=== PATIENT | female | born 1960 | race American Indian/Alaskan Native ===

== ENCOUNTER 2017-01-23 11:20 | Emergency (ER) | payer MEDICARE ==
[2017-01-23] MEDS ORDERED: MORPHINE IM ONE (14:10)
[2017-01-23] MEDS ORDERED: ZOFRAN ODT PO ONE (14:10)
--- NOTE | 2017-01-23 14:16 | Emergency Department Report ---
ED General Adult HPI - General Chief complaint: Fall Stated complaint: KNEE/WRIST PAIN Time Seen by Provider: 01/23/17 14:04 Source: patient Mode of arrival: Ambulatory Limitations: No Limitations - History of Present Illness Initial comments: PT states her R knee has been hurting her for a day. PT states that today she was walking down steps and her knee gave out due to pain. PT states she fell down 4 steps. PT c/o pain to low back, L wrist, and R knee. PT states she has had two knee surgeries on each knee and states she was just in another ED for her left knee giving out. PT denies hx of htn MD Complaint: R knee pain Location: back, upper extremity, lower extremity Severity scale (0 -10): 10 Quality: sharp Consistency: constant Improves with: medication (pt states she took a half tablet of her percocet) Treatments Prior to Arrival: NSAID (mobic), other (amblating with cane, taking 1 /2 tab percocet) - Related Data Home Medications Medication Instructions Recorded Confirmed Last Taken Glimepiride [Amaryl] 4 mg PO BID 03/18/14 01/01/16 12/30/15 Gabapentin [Neurontin] 800 mg PO BID 01/01/16 01/01/16 01/01/16 Meloxicam 15 mg PO QDAY 01/01/16 01/01/16 12/30/15 Previous Rx's Medication Instructions Recorded Last Taken Type Oxycodone HCl/Acetaminophen 1 each PO Q6HR PRN #20 tablet 03/18/14 01/01/16 Rx [Percocet 10/325 mg] methOCARBAMOL [Robaxin TAB] 500 mg PO Q6H PRN #15 tablet 01/23/17 Unknown Rx Allergies Allergy/AdvReac Type Severity Reaction Status Date / Time No Known Allergies Allergy Verified 03/18/14 12:22 ED Review of Systems ROS: Stated complaint: KNEE/WRIST PAIN Other details as noted in HPI Comment: All other systems reviewed and negative Cardiovascular: denies: chest pain Gastrointestinal: denies: abdominal pain, nausea, vomiting Musculoskeletal: back pain, joint swelling, arthralgia Skin: other (pt denies wounds from fall ) Neurological: abnormal gait (due to knee pain ) ED Past Medical Hx - Past Medical History Previous Medical History?: Yes Hx Congestive Heart Failure: No Hx Diabetes: Yes Hx Asthma: No Hx COPD: No Additional medical history: Sciatic nerve pain, Herniated disc in back. Left hip atrophy - Surgical History Past Surgical History?: Yes Hx Cholecystectomy: Yes Additional Surgical History: knee surgery, hysterectomy. mastoid surgery - Social History Smoking Status: Never Smoker Substance Use Type: Alcohol, Non Opiate Pain, Prescribed - Medications Home Medications: Home Medications Medication Instructions Recorded Confirmed Last Taken Type Glimepiride [Amaryl] 4 mg PO BID 03/18/14 01/01/16 12/30/15 History Oxycodone HCl/Acetaminophen 1 each PO Q6HR PRN #20 tablet 03/18/14 01/01/1606/09 Rx [Percocet 10/325 mg] Gabapentin [Neurontin] 800 mg PO BID 01/01/16 01/01/16 01/01/16 History Meloxicam 15 mg PO QDAY 01/01/16 01/01/16 12/30/15 History methOCARBAMOL [Robaxin TAB] 500 mg PO Q6H PRN #15 tablet 01/23/17 Unknown Rx ED Physical Exam - General Limitations: No Limitations General appearance: alert, in no apparent distress, obese - Head Head exam: Present: atraumatic, normocephalic - Eye Eye exam: Present: normal appearance - ENT ENT exam: Present: normal exam - Neck Neck exam: Present: normal inspection, full ROM, other (no post midline c-spine tenderness ) - Respiratory Respiratory exam: Present: normal lung sounds bilaterally, respiratory distress. Absent: chest wall tenderness - Cardiovascular Cardiovascular Exam: Present: regular rate, normal rhythm, normal heart sounds - GI/Abdominal GI/Abdominal exam: Present: soft. Absent: tenderness - Rectal Rectal exam: Present: deferred - Extremities Exam Extremities exam: Present: normal inspection, tenderness, normal capillary refill. Absent: calf tenderness - Expanded Upper Extremity Exam Left Upper Arm exam: Present: normal inspection, full ROM Elbow exam: Present: normal inspection, full ROM Forearm Wrist exam: Present: normal inspection, tenderness (to the radial aspect of the L wrist ) Vascular: Present: normal capillary refill. Absent: vascular compromise, pulse deficit radial art - Expanded Lower Extremity Exam Right Upper Leg exam: Present: normal inspection Knee exam: Present: tenderness (exam limited due to pt's body habitus, difficult to appreciate landmarks. ), full knee extension Lower Leg exam: Absent: erythema, Martin's sign Neuro vascular tendon exam: Present: no vascular compromise - Back Exam Back exam: Present: normal inspection, tenderness, vertebral tenderness (L spine ). Absent: CVA tenderness (R), CVA tenderness (L) - Neurological Exam Neurological exam: Present: alert, oriented X3 - Psychiatric Psychiatric exam: Present: normal affect, normal mood - Skin Skin exam: Present: warm, dry, intact, normal color ED Course Vital Signs 01/23/17 01/23/17 11:30 14:18 Temperature 98.5 F Pulse Rate 89 Respiratory 20 18 Rate Blood Pressure 157/82 O2 Sat by Pulse 95 Oximetry - Reevaluation(s) Reevaluation #1: 01/23/17 14:12 PT aware of plan of care. Reevaluation #2: 01/23/17 15:20 PT states she is feeling better. PT has family at bedside. PT ward no fx seen on exam. PT aware of plan of care. Reevaluation #3: 01/23/17 15:46 pt in L velcro wrist splint. pt nvi - Pulse Oximetry Interpretation Digit-Finger Initial Pulse Oximetry Readin ED Medical Decision Making - Radiology Data Radiology results: report reviewed R knee- no fx, degenerative changes L spine- no fx L wrist - nap - Differential Diagnosis fall, fracture, contusion Critical care attestation.: If time is entered above; I have spent that time in minutes in the direct care of this critically ill patient, excluding procedure time. ED Disposition Clinical Impression: Fall down steps Qualifiers: Encounter type: initial encounter Qualified Code(s): W10.8XXA - Fall (on) (from ) other stairs and steps, initial encounter Right knee pain Qualifiers: Chronicity: acute Qualified Code(s): M25.561 - Pain in right knee Left wrist injury Qualifiers: Encounter type: initial encounter Qualified Code(s): S69.92XA - Unspecified injury of left wrist, hand and finger(s), initial encounter Acute low back pain Qualifiers: Back pain laterality: midline Sciatica presence: without sciatica Qualified Code(s): M54.5 - Low back pain Disposition: DISCHARGED TO HOME OR SELFCARE Is pt being admited?: No Does the pt Need Aspirin: No Condition: Stable Instructions: Wrist Injury (ED), Knee Pain (ED), Fall Prevention (ED) Additional Instructions: No driving or ETOH after Robaxin Prescriptions: methOCARBAMOL [Robaxin TAB] 500 mg PO Q6H PRN #15 tablet PRN Reason: Muscle Spasm Referrals: PRIMARY CARE, [Primary Care Provider] - 3-5 Days Time of Disposition: 15:24
--- NOTE | 2017-01-23 15:13 | XRay Report ---
LEFT WRIST, 2 views: HISTORY: Pain after fall. Routine views demonstrate the carpal bones to be well mineralized with well preserved bony mineralization and interosseous joint spaces. The carpal and adjacent articular bones have normal contours. The surrounding soft tissues are unremarkable. IMPRESSION: Unremarkable exam.
--- NOTE | 2017-01-23 15:14 | XRay Report ---
LUMBOSACRAL SPINE, 3 VIEWS: History: Back pain Findings: The vertebral bodies, disk spaces and posterior elements are intact. No compression deformity or malalignment. Mild degenerative changes are noted. The SI joints are symmetric and unremarkable. Impression: 1. No evidence for acute injury to the lumbar spine.
--- NOTE | 2017-01-23 15:14 | XRay Report ---
RIGHT KNEE, 3 views: History: Pain after fall. Moderate osteoarthritic changes are identified. No evidence for fracture, osteochondral defect or bone lesion. No significant soft tissue abnormality is seen. IMPRESSION: Degenerative changes. No acute bony injury.
[2017-01-23 15:49] VITALS: BP 152/84
== END 2017-01-23 15:48 | disposition home or self-care (01) ==
LOC: ED 11:20
DX: S69.92XA Unspecified injury of left wrist, hand and finger(s), initial encounter (principal); M25.561 Pain in right knee; M54.5 Low back pain; E11.9 Type 2 diabetes mellitus without complications; Z90.49 Acquired absence of other specified parts of digestive tract; Z90.710 Acquired absence of both cervix and uterus; Z98.890 Other specified postprocedural states; W10.8XXA Fall (on) (from) other stairs and steps, initial encounter; Y93.01 Activity, walking, marching and hiking; Y99.8 Other external cause status; Y92.89 Other specified places as the place of occurrence of the external cause
CPT/HCPCS: 29125; 72100; 73100; 73562; 96372; 99284; J2270; Q0162

== ENCOUNTER 2017-11-09 13:35 | Emergency (ER) | payer MEDICARE ==
[2017-11-09 14:25] LABS: Basophils % (Auto) 0.2 % (0.0-1.8); Eosinophils % (Auto) 0.1 % (0.0-4.3); Hematocrit 41.9 % (30.3-42.9); Hemoglobin 13.7 gm/dl (10.1-14.3); Mean Corpuscular HGB Conc 33 % (30-34); Mean Corpuscular Hemoglobin 28 pg (28-32); Mean Corpuscular Volume 86 fl (79-97); Platelet Count 264 K/mm3 (140-440); Red Blood Count 4.85 M/mm3 (3.65-5.03); Red Cell Distribution Width 13.6 % (13.2-15.2); White Blood Count 11.6 K/mm3 (4.5-11.0)
[2017-11-09 14:40] LABS: Anion Gap 27 mmol/L; BUN/Creatinine Ratio 29; Blood Urea Nitrogen 26 mg/dL (7-17); Calcium 9.5 mg/dL (8.4-10.2); Carbon Dioxide 22 mmol/L (22-30); Glucose 358 mg/dL (65-100); Potassium 4.4 mmol/L (3.6-5.0); Sodium 139 mmol/L (137-145)
[2017-11-09] MEDS ORDERED: NACL 0.9% 1000 ML 1,000 ML IV ONE (14:46)
[2017-11-09] MEDS ORDERED: NORCO 5/325 PO ONE (14:56)
[2017-11-09] MEDS ORDERED: TORADOL IV ONE (14:56)
--- NOTE | 2017-11-09 15:40 | Emergency Department Report ---
- General Chief Complaint: Chest Pain Stated Complaint: SORE THROAT Time Seen by Provider: 11/09/17 14:38 Source: patient, old records reviewed (negative stress test 01/12/2016 EF of 68% ) Mode of arrival: Ambulatory Limitations: No Limitations - History of Present Illness Initial Comments: 57-year-old female with a past medical history diabetes, previous cholecystectomy, hysterectomy, and herniated discs presents to the hospital with complaints of sore throat, fever, chills, cough for 3 days. Cough is primarily nonproductive. Patient states that most of the pain is in her throat. Patient denies nausea, vomiting, but today started to have loose black stools. Positive chest pain secondary to congestion. Denies shortness of breath, abdominal pain, or dysuria. Patient did not receive a flu shot this year. Patient states she hasn't taken her medication in several days secondary to pain with swallowing. She also states she is in pain management and takes Percocet. Decreased PO intake reported. PMD: Dr. Green - Related Data Home Medications Medication Instructions Recorded Confirmed Last Taken Glimepiride [Amaryl] 4 mg PO BID 03/18/14 01/01/16 12/30/15 Gabapentin [Neurontin] 800 mg PO BID 01/01/16 01/01/16 01/01/16 Meloxicam 15 mg PO QDAY 01/01/16 01/01/16 12/30/15 Previous Rx's Medication Instructions Recorded Last Taken Type Oxycodone HCl/Acetaminophen 1 each PO Q6HR PRN #20 tablet 03/18/14 01/01/16 Rx [Percocet 10/325 mg] methOCARBAMOL [Robaxin TAB] 500 mg PO Q6H PRN #15 tablet 01/23/17 Unknown Rx Azithromycin [Zithromax Z-KATHIE] 1 dose PO DAILY 5 Days tab 11/09/17 Unknown Rx Benzonatate [Tessalon Perles] 100 mg PO Q8HR #30 capsule 11/09/17 Unknown Rx Ondansetron [Zofran Odt] 4 mg PO Q8HR #20 tab.rapdis 11/09/17 Unknown Rx Allergies Allergy/AdvReac Type Severity Reaction Status Date / Time No Known Allergies Allergy Verified 11/09/17 13:40 ED Review of Systems ROS: Stated complaint: SORE THROAT Other details as noted in HPI Comment: All other systems reviewed and negative Other: Constitutional: as per hpi Eyes: No eye pain visual changes ENT: as per hpi Neck: Denies pain Respiratory: as per hpi Cardiovascular: Denies palpitations, syncope GI: Denies abdominal pain : Denies dysuria Musculoskeletal: Denies back pain, joint swelling Skin: Denies rash, lesions, erythema Neurologic: Denies headache, numbness, weakness Psychiatric: Denies suicidal ideation, hallucinations ED Past Medical Hx - Past Medical History Hx Congestive Heart Failure: No Hx Diabetes: Yes Hx Asthma: No Hx COPD: No Additional medical history: Sciatic nerve pain, Herniated disc in back. Left hip atrophy - Surgical History Hx Cholecystectomy: Yes Additional Surgical History: knee surgery, hysterectomy. mastoid surgery - Social History Smoking Status: Never Smoker Substance Use Type: None - Medications Home Medications: Home Medications Medication Instructions Recorded Confirmed Last Taken Type Glimepiride [Amaryl] 4 mg PO BID 03/18/14 01/01/16 12/30/15 History Oxycodone HCl/Acetaminophen 1 each PO Q6HR PRN #20 tablet 03/18/14 01/01/1606/09 Rx [Percocet 10/325 mg] Gabapentin [Neurontin] 800 mg PO BID 01/01/16 01/01/16 01/01/16 History Meloxicam 15 mg PO QDAY 01/01/16 01/01/16 12/30/15 History methOCARBAMOL [Robaxin TAB] 500 mg PO Q6H PRN #15 tablet 01/23/17 Unknown Rx Azithromycin [Zithromax Z-KATHIE] 1 dose PO DAILY 5 Days tab 11/09/17 Unknown Rx Benzonatate [Tessalon Perles] 100 mg PO Q8HR #30 capsule 11/09/17 Unknown Rx Ondansetron [Zofran Odt] 4 mg PO Q8HR #20 tab.rapdis 11/09/17 Unknown Rx ED Physical Exam - General Limitations: No Limitations - Other Other exam information: General: No limitations, patient is alert in no acute distress Head exam: Atraumatic, normocephalic Eyes exam: Normal appearance, pupils equal reactive to light, extraocular movements intact ENT: Moist mucous membrane, normal oropharynx, no exudate Neck exam: Normal inspection, full range of motion, no meningismus nontender Respiratory exam: Clear to auscultation bilateral, no wheezes, rales, crackles Cardiovascular: Normal rate and rhythm, tachycardic regular rhythm Abdomen: Soft, nondistended, and nontender, with normal bowel sounds, no rebound, or guarding Rectal: Erythema to anal area with external hemorrhoid. Brown stool without gross blood. Guaiac positive Extremity: Full range of motion normal inspection no deformity, no calf tenderness or edema Back: Normal Inspection, full range of motion, no tenderness Neurologic: Alert, oriented x3, cranial nerves intact, no motor or sensory deficit Psychiatric: normal affect, normal mood Skin: Warm, dry, intact ED Course Vital Signs 11/09/17 11/09/17 11/09/17 13:40 14:08 14:15 Temperature 98.3 F Pulse Rate 123 H 109 H Respiratory 18 35 H Rate Blood Pressure 124/75 168/89 O2 Sat by Pulse 98 98 99 Oximetry 11/09/17 11/09/17 11/09/17 14:30 14:45 15:03 Temperature Pulse Rate 108 H 108 H 115 H Respiratory 13 14 24 Rate Blood Pressure 149/83 136/87 136/87 O2 Sat by Pulse 94 95 93 Oximetry 11/09/17 11/09/17 11/09/17 15:15 15:30 15:45 Temperature Pulse Rate 114 H 113 H 115 H Respiratory 14 19 19 Rate Blood Pressure 180/104 158/82 164/90 O2 Sat by Pulse 97 98 98 Oximetry 11/09/17 11/09/17 11/09/17 16:00 16:15 16:30 Temperature Pulse Rate 108 H 108 H 104 H Respiratory 19 23 20 Rate Blood Pressure 158/86 158/86 155/81 O2 Sat by Pulse 96 96 95 Oximetry 11/09/17 11/09/17 11/09/17 16:45 17:00 17:15 Temperature Pulse Rate 101 H 102 H 99 H Respiratory 15 18 17 Rate Blood Pressure 163/95 162/80 160/81 O2 Sat by Pulse 95 94 93 Oximetry - Reevaluation(s) Reevaluation #1: 11/09/17 15:40 Patient treated with NS, Toradol, [place] ED Medical Decision Making - Lab Data Result diagrams: 11/09/17 14:02 11/09/17 14:02 Lab Results 11/09/17 11/09/17 Range/Units 14:02 14:02 WBC 11.6 H (4.5-11.0) K/mm3 RBC 4.85 (3.65-5.03) M/mm3 Hgb 13.7 (10.1-14.3) gm/dl Hct 41.9 (30.3-42.9) % MCV 86 (79-97) fl MCH 28 (28-32) pg MCHC 33 (30-34) % RDW 13.6 (13.2-15.2) % Plt Count 264 (140-440) K/mm3 Lymph % (Auto) 15.5 (13.4-35.0) % [place] % (Auto) 10.2 H (0.0-7.3) % Eos % (Auto) 0.1 (0.0-4.3) % Baso % (Auto) 0.2 (0.0-1.8) % Lymph # 1.8 (1.2-5.4) K/mm3 [place] # 1.2 H (0.0-0.8) K/mm3 Eos # 0.0 (0.0-0.4) K/mm3 Baso # 0.0 (0.0-0.1) K/mm3 Seg Neutrophils % 74.0 H (40.0-70.0) % Seg Neutrophils # 8.6 H (1.8-7.7) K/mm3 Sodium 139 (137-145) mmol/L Potassium 4.4 (3.6-5.0) mmol/L Chloride 94.0 L (98-107) mmol/L Carbon Dioxide 22 (22-30) mmol/L Anion Gap 27 mmol/L BUN 26 H (7-17) mg/dL Creatinine 0.9 (0.7-1.2) mg/dL Estimated GFR > 60 ml/min BUN/Creatinine Ratio 29 % Glucose 358 H (65-100) mg/dL Calcium 9.5 (8.4-10.2) mg/dL Troponin T < 0.010 (0.00-0.029) ng/mL Flu negative Strep negative - EKG Data -: EKG Interpreted by [facility] EKG shows normal: sinus rhythm, axis (47), QRS complexes (91), ST-T waves (no stemi/t inv) Rate: tachycardia (110) - EKG Data When compared to previous EKG there are: no significant change (12/19/15) - Radiology Data Radiology results: report reviewed (chest x-ray reported by radiologist: Normal) - Medical Decision Making Patient will be treated empirically with a Z-Kathie. Nausea cough medicine will be provided to take as needed. Up is to follow-up will be encouraged. Tachycardia likely secondary to dehydration and decreased by mouth. Improved with IV fluids - Differential Diagnosis viral syndrome, bronchitis, pneumonia, strep pharyngitis Critical Care Time: No Critical care attestation.: If time is entered above; I have spent that time in minutes in the direct care of this critically ill patient, excluding procedure time. ED Disposition Clinical Impression: Viral syndrome, Pharyngitis, Diabetes Disposition: - TO HOME OR SELFCARE Is pt being admited?: No Does the pt Need Aspirin: No Condition: Stable Instructions: Viral Syndrome (ED), Pharyngitis (ED), Diabetes Mellitus Type 2 in Adults (ED) Additional Instructions: Take the medication as prescribed. Return if symptoms worsen. Follow up with his doctor within 2-3 days Prescriptions: Azithromycin [Zithromax Z-KATHIE] 1 dose PO DAILY 5 Days tab Benzonatate [Tessalon Perles] 100 mg PO Q8HR #30 capsule Ondansetron [Zofran Odt] 4 mg PO Q8HR #20 tab.kp Referrals: KELSEY GREEN MD [Staff Physician] - 2-3 Days Time of Disposition: 17:46
--- NOTE | 2017-11-09 15:55 | XRay Report ---
FINAL REPORT PROCEDURE: XR CHEST ROUTINE 2V TECHNIQUE: PA and lateral chest radiographs were obtained. CPT 91223 HISTORY: fever, cough, chills COMPARISON: No prior studies are available for comparison. FINDINGS: Heart: Normal. Mediastinum/Vessels: Normal. Lungs/Pleural space: Normal. Bony thorax: No acute osseous abnormality. Other: IMPRESSION: Normal examination.
[2017-11-09 18:18] VITALS: BP 166/72
== END 2017-11-09 18:00 | disposition home or self-care (01) ==
LOC: ED 13:35
DX: B34.9 Viral infection, unspecified (principal); J02.9 Acute pharyngitis, unspecified; E11.9 Type 2 diabetes mellitus without complications
CPT/HCPCS: 36415; 71020; 80048; 82271; 82962; 84484; 85025; 87116; 87400; 87430; 93005; 93010; 96361; 96374; 96375; 99284; J1885; J7030; J1815

== ENCOUNTER → 2018-02-05 | Outpatient (CLI) | payer MEDICARE | LOC: SLR 11:00 | PROVIDERS: ATTEND Otolaryngology | DX: G47.30 Sleep apnea, unspecified (principal) | CPT/HCPCS: 95810 ==

== ENCOUNTER 2018-03-05 11:00 | Outpatient (CLI) | payer MEDICARE | END 2018-03-05 11:01 | disposition home or self-care (01) | LOC: SLR 11:00 | PROVIDERS: ATTEND Otolaryngology | DX: G47.33 Obstructive sleep apnea (adult) (pediatric) (principal); E66.9 Obesity, unspecified; R40.0 Somnolence | CPT/HCPCS: 95811 ==

== ENCOUNTER 2018-03-26 18:31 | Emergency (ER) | payer MEDICARE ==
[2018-03-26 19:01] VITALS: BP 164/83
--- NOTE | 2018-03-27 02:55 | Emergency Department Report ---
HPI - General Chief Complaint: Pain General Time Seen by Provider: 03/27/18 00:09 ED Past Medical Hx - Past Medical History Hx Congestive Heart Failure: No Hx Diabetes: Yes Hx Asthma: No Hx COPD: No Additional medical history: Sciatic nerve pain, Herniated disc in back. Left hip atrophy - Surgical History Hx Cholecystectomy: Yes Additional Surgical History: knee surgery, hysterectomy. mastoid surgery - Social History Smoking Status: Never Smoker Substance Use Type: None - Medications Home Medications: Home Medications Medication Instructions Recorded Confirmed Last Taken Type Glimepiride [Amaryl] 4 mg PO BID 03/18/14 01/01/16 12/30/15 History Oxycodone HCl/Acetaminophen 1 each PO Q6HR PRN #20 tablet 03/18/14 01/01/1606/09 Rx [Percocet 10/325 mg] Gabapentin [Neurontin] 800 mg PO BID 01/01/16 01/01/16 01/01/16 History Meloxicam 15 mg PO QDAY 01/01/16 01/01/16 12/30/15 History methOCARBAMOL [Robaxin TAB] 500 mg PO Q6H PRN #15 tablet 01/23/17 Unknown Rx Azithromycin [Zithromax Z-KATHIE] 1 dose PO DAILY 5 Days tab 11/09/17 Unknown Rx Benzonatate [Tessalon Perles] 100 mg PO Q8HR #30 capsule 11/09/17 Unknown Rx Ondansetron [Zofran Odt] 4 mg PO Q8HR #20 tab.rapdis 11/09/17 Unknown Rx ED Review of Systems ROS: Stated complaint: LEG PAIN Other details as noted in HPI Constitutional: denies: chills, fever Eyes: denies: eye pain, eye discharge, vision change ENT: denies: ear pain, throat pain Respiratory: denies: cough, shortness of breath, wheezing Cardiovascular: denies: chest pain, palpitations Endocrine: no symptoms reported Gastrointestinal: denies: abdominal pain, nausea, diarrhea Genitourinary: denies: urgency, dysuria, discharge Musculoskeletal: arthralgia, myalgia. denies: back pain, joint swelling Skin: denies: rash, lesions Neurological: denies: headache, weakness, paresthesias Psychiatric: denies: anxiety, depression Hematological/Lymphatic: denies: easy bleeding, easy bruising Physical Exam - Physical Exam Vital Signs: Vital Signs 03/26/18 18:57 Temperature 99.1 F Pulse Rate 93 H Respiratory 16 Rate Blood Pressure 164/83 O2 Sat by Pulse 97 Oximetry Physical Exam: GENERAL: Alert and oriented x3, no apparent distress, Normal Gait, atraumatic. HEAD: Head is normocephalic and a-traumatic. NECK: Supple. Non edematous, No lymphadenopathy or thyromegaly. No C-spine tenderness, full range of motion LUNGS: Symetrical with respiration, No wheezing, no rales or crackles, CTAB. HEART: S1, S2 present, regular rate and rhythm without murmur, no rubs, no gallops. Non tender to palpation BACK: Full range of motion, no spinal tenderness, EXTREMITIES/MUSCULOSKELETAL: No cyanosis, clubbing, rash, lesions or edema. Full ROM bilaterally. UE/LE Pulses 2+ bilaterally. LE and UE 5+ strength bilaterally, tenderness to palpation of the gastrocnemius muscles. Homans sign negative, no swelling or tenderness of the calf NEUROLOGIC: The patient is cooperative with no focal neurologic deficits. SKIN: Warm and dry, No lesions, No ulceration or induration present. ED Course Vital Signs 03/26/18 18:57 Temperature 99.1 F Pulse Rate 93 H Respiratory 16 Rate Blood Pressure 164/83 O2 Sat by Pulse 97 Oximetry Critical care attestation.: If time is entered above; I have spent that time in minutes in the direct care of this critically ill patient, excluding procedure time. ED Disposition Disposition: [id number]-07 LEFT AGAINST MED ADVICE Condition: Stable Referrals: PRIMARY CARE, [Primary Care Provider] - 3-5 Days Forms: AMA Form
== END 2018-03-27 00:43 | disposition left against medical advice (07) ==
LOC: ED 18:31
DX: M79.605 Pain in left leg (principal); E11.9 Type 2 diabetes mellitus without complications; Z90.710 Acquired absence of both cervix and uterus; Z90.49 Acquired absence of other specified parts of digestive tract; Z98.890 Other specified postprocedural states
CPT/HCPCS: 99282

== ENCOUNTER 2018-12-08 15:35 | Emergency (ER) | payer MEDICARE ==
[2018-12-08] MEDS ORDERED: CATAPRES ONE (16:00)
[2018-12-08] MEDS ORDERED: CATAPRES PO ONE (16:01)
--- NOTE | 2018-12-08 18:25 | Emergency Department Report ---
ED Dysuria HPI - HPI Chief Complaint: Abdominal Pain Stated Complaint: LEFT SIDE PAIN Time Seen by Provider: 12/08/18 17:21 Duration: 3 Days Severity: Moderate Symptoms: Dysuria: Yes, Frequency: No, Suprapubic Pain: No, Flank Pain: Yes, Fever: Yes, Hematuria: No, Abdominal Pain: No, Previous UTI's: No Other History: Patient is a 58-year-old -[place] female that comes in tonight complaining of a several WEEK history of left flank pain. She states that over the last several days she has had nausea vomiting fevers and chills. She is afebrile. She is ambulatory and nontoxic on arrival. She is eating chips on my arrival to her room. She was hypertensive in triage and given clonidine for her blood pressure. ED Review of Systems ROS: Stated complaint: LEFT SIDE PAIN Other details as noted in HPI Comment: All other systems reviewed and negative Constitutional: see HPI, chills, fever Eyes: denies: eye pain ENT: denies: ear pain Respiratory: denies: cough Cardiovascular: denies: dyspnea on exertion Endocrine: denies: flushing Gastrointestinal: as per HPI, abdominal pain (FLANK PAIN LEFT). denies: nausea Genitourinary: as per HPI. denies: urgency, dysuria Musculoskeletal: back pain (FLANK PAIN L). denies: as per HPI Skin: denies: rash Neurological: denies: headache Psychiatric: denies: anxiety Hematological/Lymphatic: denies: easy bleeding ED Past Medical Hx - Past Medical History Hx Congestive Heart Failure: No Hx Diabetes: Yes Hx Asthma: No Hx COPD: No Additional medical history: Sciatic nerve pain, Herniated disc in back. Left hip atrophy - Surgical History Past Surgical History?: Yes Hx Cholecystectomy: Yes Additional Surgical History: knee surgery, hysterectomy. mastoid surgery - Family History Family history: no significant - Social History Smoking Status: Never Smoker - Medications Home Medications: Home Medications Medication Instructions Recorded Confirmed Last Taken Type Glimepiride [Amaryl] 4 mg PO BID 03/18/14 01/01/16 12/30/15 History Oxycodone HCl/Acetaminophen 1 each PO Q6HR PRN #20 tablet 03/18/14 01/01/16 01/01/16 Rx [Percocet 10/325 mg] Gabapentin [Neurontin] 800 mg PO BID 01/01/16 01/01/16 01/01/16 History Meloxicam 15 mg PO QDAY 01/01/16 01/01/16 12/30/15 History methOCARBAMOL [Robaxin TAB] 500 mg PO Q6H PRN #15 tablet 01/23/17 Unknown Rx Sulfamethoxazole/Trimethoprim 1 each PO BID #10 tablet 12/08/18 Unknown Rx [Bactrim DS TAB] Dysuria Exam - Exam General: Vital signs noted. No distress. Alert and acting appropriately. A/O NO FOCAL NEURO DEF ABD SNT NO CVA TENDERNESS S1S2 LUNGS CTA Exam: Yes Moist Mucous Membranes, No CVA Tenderness, No Abdominal Tenderness, No Rigidity or Guarding ED Course Vital Signs 12/08/18 15:38 Temperature 97.9 F Pulse Rate 100 H Respiratory 16 Rate Blood Pressure 212/107 ED Medical Decision Making - Medical Decision Making NON TOXIC NO FEVER NO CVA TENDERNESS ABD SNT Note the patient is on Amaryl, gabapentin, oxycodone, one via, dark clots in the for pain. Labs 12/08/18 17:32 Urine Color Yellow Urine Turbidity Cloudy Urine pH 5.0 Ur Specific [place] 1.033 H Urine Protein <15 mg/dl Urine Glucose (UA) >=500 Urine Ketones 20 Urine Blood Sm Urine Nitrite Neg Urine Bilirubin Neg Urine Urobilinogen < 2.0 Ur Leukocyte Esterase Lg Urine WBC (Auto) 58.0 H Urine RBC (Auto) 16.0 U Epithel Cells (Auto) 43.0 H Urine Bacteria (Auto) 4+ Urine Mucus Few - Differential Diagnosis UTI V K STONE Critical care attestation.: If time is entered above; I have spent that time in minutes in the direct care of this critically ill patient, excluding procedure time. ED Disposition Clinical Impression: Hypertension, Diabetes mellitus type 2 in obese, Chronic pain, Urinary tract infection Disposition: DC-01 TO HOME OR SELFCARE Is pt being admited?: No Does the pt Need Aspirin: No Condition: Stable Additional Instructions: TAKE YOUR HOME MEDS PRESCRIBED DIABETIC DIET CONTROLLING YOUR BLOOD SUGAR WILL HELP PREVENT UTI'S ACTIVITY TOLERATED DRINK A LOT OF WATER FOLLOW UP WITH PCP AT THE END OF THE WEEK IF NOT FEELING BETTER MOTRIN OR TYLENOL FOR PAIN OR FEVER TAKE MEDICATION UNTIL GONE Referrals: BRANDON ALAS MD [Primary Care Provider] - 3-5 Days NICOLE GALLAGHER MD [Staff Physician] - 3-5 Days Time of Disposition: 18:40
[2018-12-08 18:41] LABS: Bacteria,Urine 4+ /HPF (Negative); Bilirubin,Urine NEG (Negative); Blood,Urine SM (Negative); Color,Urine Yellow (Yellow); Mucus,Urine FEW /HPF; Protein,Urine <15 mg/dL mg/dL (Negative); Urobilinogen,Urine < 2.0 mg/dL (<2.0)
[2018-12-08] MEDS ORDERED: BACTRIM DS PO ONE (18:46)
[2018-12-08] MEDS ORDERED: PYRIDIUM PO ONE (18:48)
[2018-12-08 19:03] VITALS: BP 151/77
== END 2018-12-08 19:02 | disposition home or self-care (01) ==
LOC: ED 15:35
DX: N39.0 Urinary tract infection, site not specified (principal); E11.9 Type 2 diabetes mellitus without complications; I10 Essential (primary) hypertension; Z90.710 Acquired absence of both cervix and uterus; Z90.49 Acquired absence of other specified parts of digestive tract; Z79.899 Other long term (current) drug therapy
CPT/HCPCS: 81001; 99283

== ENCOUNTER 2019-01-02 11:00 | Outpatient (CLI) | payer MEDICARE | END 2019-01-02 11:01 | disposition home or self-care (01) | LOC: SLR 11:00 | PROVIDERS: ATTEND Otolaryngology | DX: G47.33 Obstructive sleep apnea (adult) (pediatric) (principal); R06.83 Snoring; E11.9 Type 2 diabetes mellitus without complications; Z90.49 Acquired absence of other specified parts of digestive tract; Z90.710 Acquired absence of both cervix and uterus | CPT/HCPCS: 95810 ==

== ENCOUNTER 2019-01-13 11:00 | Outpatient (CLI) | payer MEDICARE | END 2019-01-13 11:01 | disposition home or self-care (01) | LOC: SLR 11:00 | PROVIDERS: ATTEND Otolaryngology | DX: G47.33 Obstructive sleep apnea (adult) (pediatric) (principal); R06.83 Snoring; E11.9 Type 2 diabetes mellitus without complications | CPT/HCPCS: 95811 ==